=== PATIENT | female | born 1980 | race Caucasian/White ===

== ENCOUNTER 2024-05-02 08:53 | Outpatient (CLI) | payer BC | END 2024-05-02 08:54 | disposition home or self-care (01) | LOC: CSHMAMMO 08:53 | PROVIDERS: ATTEND Student in an Organized Health Care Education/Training Program | DX: R92.8 Other abnormal and inconclusive findings on diagnostic imaging of breast (principal); N63.25 Unspecified lump in the left breast, overlapping quadrants; N64.9 Disorder of breast, unspecified | CPT/HCPCS: G0279 ==